=== PATIENT | male | born 1950 | race Caucasian/White ===

== ENCOUNTER 2017-04-12 15:33 | Inpatient (IN) | payer MEDICARE, OTHER ==
--- NOTE | 2017-04-12 16:15 | ED ---
General Adult HPI - General Chief complaint: Shortness of Breath Stated complaint: SOB Time Seen by Provider: 04/12/17 15:41 Source: patient, RN notes reviewed Mode of arrival: EMS Limitations: no limitations - History of Present Illness Initial comments: Patient is a pleasant 67-year-old male presenting to the emergency Department as a transfer from [facility]. Patient states he has been having shortness of breath over the past week. Patient was seen there and had x-rays following computed tomography scan. Computed tomography scan was concerning for mass and effusion. Patient is also noted to be in A. fib with RVR. Patient states no fevers. Patient has had a cough with occasional white sputum. Patient states he does have a history of both COPD and atrial fibrillation. - Related Data Home Medications Medication Instructions Recorded Confirmed Albuterol Inhaler [Ventolin Hfa 1 - 2 puff INHALATION RT-QID PRN 04/12/17 Inhaler] Apixaban [Eliquis] 5 mg PO BID 04/12/17 04/12/17 Metoprolol Tartrate [Lopressor] 50 mg PO BID 04/12/17 04/12/17 Multivitamins, Thera [Multivitamin 1 tab PO DAILY 04/12/17 04/12/17 (formulary)] Omeprazole 20 mg PO HS 04/12/17 04/12/17 Simvastatin 40 mg PO HS 04/12/17 04/12/17 Terazosin HCl 10 mg PO HS 04/12/17 04/12/17 Allergies Allergy/AdvReac Type Severity Reaction Status Date / Time No Known Allergies Allergy Verified 04/12/17 15:50 Review of Systems ROS Statement: Those systems with pertinent positive or pertinent negative responses have been documented in the HPI. ROS Other: All systems not noted in ROS Statement are negative. Constitutional: Denies: fever, chills Eyes: Denies: eye pain ENT: Denies: ear pain Cardiovascular: Denies: chest pain Endocrine: Reports: fatigue Gastrointestinal: Denies: abdominal pain Genitourinary: Denies: dysuria Musculoskeletal: Denies: back pain Skin: Denies: rash Neurological: Denies: weakness Past Medical History Past Medical History: Atrial Fibrillation, Coronary Artery Disease (CAD), Cancer , Chest Pain / Angina, COPD, Hyperlipidemia, Hypertension History of Any Multi-Drug Resistant Organisms: None Reported Past Surgical History: Adenoidectomy, Tonsillectomy Additional Past Surgical History / Comment(s): Vagotomy, Colonoscopy, Gastroscopy, Hemicolectomy Past Psychological History: No Psychological Hx Reported Smoking Status: Former smoker Past Alcohol Use History: Daily Past Drug Use History: None Reported General Exam Limitations: no limitations General appearance: alert, in no apparent distress Head exam: Present: atraumatic Eye exam: Present: normal appearance, PERRL ENT exam: Present: normal oropharynx Neck exam: Present: normal inspection Respiratory exam: Present: decreased breath sounds (more so on the left) Cardiovascular Exam: Present: tachycardia, irregular rhythm GI/Abdominal exam: Present: soft. Absent: tenderness Extremities exam: Present: normal inspection. Absent: pedal edema, calf tenderness Neurological exam: Present: alert Psychiatric exam: Present: normal affect, normal mood Skin exam: Present: normal color Course Vital Signs 04/12/17 04/12/17 15:41 15:46 Temperature 97.7 F Pulse Rate 120 H Respiratory 20 20 Rate Blood Pressure 143/92 O2 Sat by Pulse 95 Oximetry - Reevaluation(s) Reevaluation #1: 04/12/17 16:11 apparently report was accidentally called to the wrong hospital. Case was discussed with Dr. Wills. Chart was reviewed Including ER report and lab and CT results.. Patient was updated. 04/12/17 16:12 case was discussed in detail with Dr. aHnnah, who will admit for hospital call. Consult will be placed for pulmonary and cardiology. 04/12/17 16:18 Patient was started on Rocephin prior to arrival with concern for UTI and possible pneumonia. Patient does meet sepsis criteria diagnosed at 1618 Lactic acid and blood cultures have been ordered. Cardizem drip and heparin drip have been ordered. Medical Decision Making - Radiology Data Radiology results: report reviewed (CT report shows near total opacification left hemithorax. large mass left upper lobe worrisome for neoplasm. Mediastinal lymphadenopathy. No pulmonary embolism.) Critical Care Time Critical Care Time: Yes Total Critical Care Time: 31 Disposition Clinical Impression: Atrial fibrillation with RVR, Lung mass, Pleural effusion Disposition: ADMITTED IP TO THIS HOSP Condition: Serious Referrals: Marc Smith MD [Primary Care Provider] - 1-2 days Decision Time: 16:25
[2017-04-12] MEDS ORDERED: HEPARIN SODIUM,PORCINE 5,000 UNIT/ML 1 ML VIAL IV PRN ×2 (16:16→20:15)
[2017-04-12] MEDS ORDERED: AZITHROMYCIN 500 MG in SODIUM CHLORIDE 0.9% 250 ML IVPB STA (16:17)
[2017-04-12] MEDS ORDERED: PNEUMONIA PROTOCOL UTILIZED 1 EACH MISC PO PRN (16:17)
[2017-04-12] MEDS ORDERED: IPRATROPIUM-ALBUTEROL 3 ML NEB INHALATION PRN (16:17)
[2017-04-12] MEDS ORDERED: HEPARIN SODIUM,PORCINE/D5W PMX 25,000 UNIT in DEXTROSE/WATER 1 500ML.BAG IV SCH (16:30)
[2017-04-12] MEDS: HEPARIN SODIUM,PORCINE 5,000 UNIT/ML 1 ML VIAL IV ONE ×2 (16:34→16:37)
[2017-04-12] MEDS: DILTIAZEM 125 MG in SODIUM CHLORIDE 0.9% 100 ML IV ONE (16:37)
[2017-04-12] MEDS ORDERED: HEPARIN SODIUM,PORCINE 5,000 UNIT/ML 1 ML VIAL IV ONE (20:15)
[2017-04-12] MEDS: IPRATROPIUM-ALBUTEROL 3 ML NEB INHALATION SCH (20:57)
[2017-04-12] MEDS ORDERED: METOPROLOL TARTRATE 50 MG TAB PO SCH (21:00)
[2017-04-12 21:11] LABS: Basophils % (A) 0 %; CH 28.3; CHCM 31.1; Eosinophils % (A) 0 %; HCT 40.3 % (39.0-53.0); HDW 2.35; HGB 12.4 gm/dL (13.0-17.5); Hypochromasia Slight; Luc # (Auto) 0.05; Luc % (Auto) 1; Lymphocytes # (A) 0.6 k/uL (1.0-4.8); Lymphocytes % (A) 7 %; MCHC 30.7 g/dL (31.0-37.0); MCV 91.4 fL (80.0-100.0); Mean Platelet Volume 7.8; Monocytes # (A) 0.4 k/uL (0-1.0); Monocytes % (A) 4 %; Neutrophils # (A) 8.1 k/uL (1.3-7.7); Neutrophils % (A) 88 %; RBC 4.41 m/uL (4.30-5.90); WBC 9.2 k/uL (3.8-10.6); WBC (Perox) 9.26
[2017-04-12] MEDS: DOXAZOSIN 4 MG TAB PO SCH (21:21)
[2017-04-12] MEDS: PANTOPRAZOLE 40 MG TABLET PO SCH (21:21)
[2017-04-12] MEDS: ATORVASTATIN 20 MG TAB PO SCH (21:21)
[2017-04-12 21:27] LABS: INR 1.2 (<1.2); Partial Thromboplastin Time 26.4 sec (22.0-30.0); Prothrombin Time 11.6 sec (9.0-12.0)
[2017-04-12] MEDS: HEPARIN SODIUM,PORCINE/D5W PMX 25,000 UNIT in DEXTROSE/WATER 1 500ML.BAG IV SCH (21:33)
[2017-04-13] MEDS: DILTIAZEM 125 MG in SODIUM CHLORIDE 0.9% 100 ML IV ONE (00:08)
--- NOTE | 2017-04-13 00:08 | P.HPIM ---
History of Present Illness H&P Date: 04/12/17 Chief Complaint: Shortness of breath Patient is a 67-year-old male with a known history of atrial fibrillation on anticoagulant with eliquis, COPD, history of smoking quit 7 years ago, history of colon cancer in 2010 status post two thirds of colon resection came to the hospital with altered mentation and confusion for the past 1 week. Patient has not been feeling well. Patient is also not eating well. Patient was also having worsening difficulty breathing and congestion. Patient initially presented to [facility]. Patient did have chest x-ray and computed tomography scan at that time. Computed tomography scan showed left lung mass and complete her prescription of left lung with effusion. Patient was also found to have its fibrillation with rapid lower rate. Patient was sent to [facility] for further evaluation by pulmonary and cardiology. Patient was started on Cardizem drip. Patient does take metoprolol at home. Patient denied a otherwise fever or chills. Patient does have cough with whitish sputum production. Patient did not have any prior chemotherapy or radiation. Review of Systems Constitutional: Patient denies any fever or chills . Generalized weakness and malaise. No weight loss Abdomen: Patient denied nausea vomiting and diarrhea and abdominal pain. Cardiovascular: Patient denies any chest pain or short of breath no palpitations. Respiratory: patient denied any cough is from production. Patient does have shortness of breath Neurologic: Patient denied any numbness or tingling headache. Musculoskeletal: Patient denies any complaints of joint swelling or deformity. Skin: Negative Psychiatric: Negative Endocrine: No heat or cold intolerance. No recent weight gain. Genitourinary: No dysuria or hematuria. All other 14 point ROS negative except the above Past Medical History Past Medical History: Atrial Fibrillation, Coronary Artery Disease (CAD), Cancer , Chest Pain / Angina, COPD, Hyperlipidemia, Hypertension History of Any Multi-Drug Resistant Organisms: None Reported Past Surgical History: Adenoidectomy, Hernia Repair, Tonsillectomy Additional Past Surgical History / Comment(s): Vagotomy, Colonoscopy, Gastroscopy, Hemicolectomy. HYDROCELE REPAIR Past Anesthesia/Blood Transfusion Reactions: No Reported Reaction Past Psychological History: No Psychological Hx Reported Smoking Status: Former smoker Past Alcohol Use History: Daily Past Drug Use History: None Reported - Past Family History Mother Family Medical History: Dementia Father Additional Family Medical History / Comment(s): KILLED CAR ACCIDENT AT 36 YEARS OLD Medications and Allergies Home Medications Medication Instructions Recorded Confirmed Type Albuterol Inhaler [Ventolin Hfa 1 - 2 puff INHALATION RT-QID PRN 04/12/17 History Inhaler] Apixaban [Eliquis] 5 mg PO BID 04/12/17 04/12/17 History Metoprolol Tartrate [Lopressor] 50 mg PO BID 04/12/17 04/12/17 History Multivitamins, Thera [Multivitamin 1 tab PO DAILY 04/12/17 04/12/17 History (formulary)] Omeprazole 20 mg PO HS 04/12/17 04/12/17 History Simvastatin 40 mg PO HS 04/12/17 04/12/17 History Terazosin HCl 10 mg PO HS 04/12/17 04/12/17 History Allergies Allergy/AdvReac Type Severity Reaction Status Date / Time No Known Allergies Allergy Verified 04/12/17 15:50 Physical Exam Vitals: Vital Signs Temp Pulse Pulse Resp BP BP Pulse Ox 04/12/17 17:15 97.7 F 126 H 28 H 120/74 92 L 04/12/17 16:51 131 H 04/12/17 16:42 114 H 04/12/17 16:39 98.4 F 143 H 18 110/77 96 04/12/17 15:46 20 04/12/17 15:41 97.7 F 120 H 20 143/92 95 Intake and Output 04/12/17 04/12/17 04/12/17 06:59 14:59 22:59 Intake Total 120 Output Total 400 Balance -280 Intake: Oral 120 Output: Urine 400 Other: Voiding Method Urinal Weight 88.5 kg Patient Weight 04/13/17 05:59 Weight 88.5 kg PHYSICAL EXAMINATION: Patient is lying in the bed comfortably, no acute distress, awake alert and oriented.. HEENT: Normocephalic. Neck is supple. Pupils reactive. Nostrils clear. Oral cavity is moist. Ears reveal no drainage. Neck reveals no JVD, carotid bruits, or thyromegaly. CHEST EXAMINATION: Trachea is central. Symmetrical expansion. Decreased left lung sounds. No wheezing. No crackles. CARDIAC: Normal S1, S2 with no gallops. No murmurs irregularly irregular rhythm ABDOMEN: Soft. Bowel sounds normal. No organomegaly. No abdominal bruits. Extremities: reveal no edema. No clubbing or cyanosis Neurologically awake, alert, oriented x3 with well-coordinated movements. No focal deficits noted Skin: No rash or skin lesions. Psychiatric: Cooperative. Nonsuicidal Musculoskeletal: No joint swelling or deformity. Normal range of motion. Results CBC & Chem 7: 04/12/17 20:38 Labs: Abnormal Lab Results - Last 24 Hours (Table) 04/12/17 04/12/17 Range/Units 20:38 20:38 Hgb 12.4 L (13.0-17.5) gm/dL MCHC 30.7 L (31.0-37.0) g/dL Neutrophils # 8.1 H (1.3-7.7) k/uL Lymphocytes # 0.6 L (1.0-4.8) k/uL INR 1.2 H (<1.2) Thrombosis Risk Factor Assmnt - Choose All That Apply Each Factor Represents 1 point: Abnormal pulmonary function (COPD), Obesity ( BMI >25), Serious lung disease incl. pneumonia (< 1month) Each Risk Factor Represents 2 Points: Age 61-74 years Other congenital or acquired thrombophilia - If yes, enter type in comment: No Thrombosis Risk Factor Assessment Total Risk Factor Score: 5 Thrombosis Risk Factor Assessment Level: High Risk Assessment and Plan Assessment: #1 atrial fibrillation with a rapid irregular rate. On and a Coblation at home #2 shortness of breath secondary to left-sided lung mass with pleural effusion. As per CT chest #3 history of colon cancer status post two thirds of colon resection in 2009 #4 history of cigarette smoking quit in 2009 #5 COPD not in exacerbation #6 hypertension #7 possible pneumonia Plan: Patient will be continued on Cardizem drip and patient was started back on metoprolol. Patient was started on heparin IV for possible surgical intervention by pulmonary. We will continue the home medications. Current with antibiotics and breathing treatments. Prognosis is guarded. Further recommendations based on the clinical course. Discussed with family at bedside. Time with Patient: Greater than 30
[2017-04-13 03:55] LABS: Basophils % (A) 0 %; CH 28.3; Eosinophils % (A) 0 %; HCT 38.8 % (39.0-53.0); HDW 2.48; HGB 12.1 gm/dL (13.0-17.5); Hypochromasia Slight; Luc # (Auto) 0.19; Luc % (Auto) 2; Lymphocytes # (A) 0.9 k/uL (1.0-4.8); Lymphocytes % (A) 9 %; MCH 28.6 pg (25.0-35.0); MCHC 31.2 g/dL (31.0-37.0); MCV 91.8 fL (80.0-100.0); Mean Platelet Volume 7.4; Monocytes # (A) 0.7 k/uL (0-1.0); Monocytes % (A) 7 %; Neutrophils # (A) 8.6 k/uL (1.3-7.7); Neutrophils % (A) 83 %; RBC 4.23 m/uL (4.30-5.90); RDW 12.5 % (11.5-15.5); WBC 10.4 k/uL (3.8-10.6)
--- NOTE | 2017-04-13 06:45 | XR ---
EXAMINATION TYPE: XR chest 2V DATE OF EXAM: 04/13/2017 HISTORY: pneumonia. REFERENCE: NONE. FINDINGS: There is a complete white out of the left hemithorax. An accompanying gas CT scan of the ch est demonstrates a diseases due to a combination of pleural fluid and atelectasis. The right lung is overinflated but clear. Mediastinal structures are shifted towards the left. IMPRESSION: 1. NEAR COMPLETE OPACIFICATION OF THE LEFT HEMITHORAX. 2. COPD.
[2017-04-13] MEDS: IPRATROPIUM-ALBUTEROL 3 ML NEB INHALATION SCH ×4 (08:49→20:09)
--- NOTE | 2017-04-13 09:02 | P.CRDCN ---
History of Present Illness Consult date: 04/13/17 Chief complaint: Shortness of breath/chest discomfort History of present illness: This is a pleasant 67-year-old gentleman who is known to have chronic A. fib fibrillation, chronic obstructive pulmonary disease, hypertension, dyslipidemia , and history of colon cancer in the past where he underwent a colon resection few years ago, was transferred from [facility] to [facility] for further evaluation of change in mental status. When I examined the patient this morning, he seems to be awake, alert, and oriented 3. According to the patient, he has not been feeding well for the last few weeks but for the last week he has been experiencing progressive exertional dyspnea associated with chest discomfort seems to be very pleuritic in nature. He stated that the discomfort is only once he coughed. Denies having any fever or chills. He has been experiencing cough productive of sputum. No wheezing. The patient underwent a chest x-ray which showed complete opacification of the left lung. There is concern regarding lung cancer. Hemodynamically, the patient is in atrial fibrillation with slightly uncontrolled heart rate and currently he is on Cardizem IV at 5 mg per hour. He is on metoprolol tartrate as well at 50 mg by mouth twice a day. Beside that he was at home on oral anticoagulation which has been held at this point and currently he is on heparin IV. He is known to have chronic atrial fibrillation on chronic anticoagulation at home and he does follows with a entry level sales representative at [facility]. He is not aware of any prior history of coronary artery disease or any congestive heart failure beside the atrial fibrillation. Past Medical History Past Medical History: Atrial Fibrillation, Coronary Artery Disease (CAD), Cancer , Chest Pain / Angina, COPD, Hyperlipidemia, Hypertension History of Any Multi-Drug Resistant Organisms: None Reported Past Surgical History: Adenoidectomy, Hernia Repair, Tonsillectomy Additional Past Surgical History / Comment(s): Vagotomy, Colonoscopy, Gastroscopy, Hemicolectomy. HYDROCELE REPAIR Past Anesthesia/Blood Transfusion Reactions: No Reported Reaction Past Psychological History: No Psychological Hx Reported Smoking Status: Former smoker Past Alcohol Use History: Daily Past Drug Use History: None Reported - Past Family History Mother Family Medical History: Dementia Father Additional Family Medical History / Comment(s): KILLED CAR ACCIDENT AT 36 YEARS OLD Medications and Allergies Home Medications Medication Instructions Recorded Confirmed Type Albuterol Inhaler [Ventolin Hfa 1 - 2 puff INHALATION RT-QID PRN 04/12/17 History Inhaler] Apixaban [Eliquis] 5 mg PO BID 04/12/17 04/12/17 History Metoprolol Tartrate [Lopressor] 50 mg PO BID 04/12/17 04/12/17 History Multivitamins, Thera [Multivitamin 1 tab PO DAILY 04/12/17 04/12/17 History (formulary)] Omeprazole 20 mg PO HS 04/12/17 04/12/17 History Simvastatin 40 mg PO HS 04/12/17 04/12/17 History Terazosin HCl 10 mg PO HS 04/12/17 04/12/17 History Allergies Allergy/AdvReac Type Severity Reaction Status Date / Time No Known Allergies Allergy Verified 04/12/17 15:50 Physical Exam Vitals: Vital Signs Temp Pulse Pulse Pulse Resp BP BP 04/13/17 08:52 100 04/13/17 08:00 96.8 F L 95 28 H 110/62 04/13/17 04:00 97.7 F 86 18 101/67 04/13/17 00:00 97.9 F 90 20 98/66 04/12/17 20:00 98.5 F 116 H 20 115/78 04/12/17 17:15 97.7 F 126 H 28 H 120/74 04/12/17 16:51 131 H 04/12/17 16:42 114 H 04/12/17 16:39 98.4 F 143 H 18 110/77 04/12/17 15:46 20 04/12/17 15:41 97.7 F 120 H 20 143/92 Pulse Ox 04/13/17 08:52 94 L 04/13/17 08:00 94 L 04/13/17 04:00 94 L 04/13/17 00:00 94 L 04/12/17 20:00 93 L 04/12/17 17:15 92 L 04/12/17 16:51 04/12/17 16:42 04/12/17 16:39 96 04/12/17 15:46 04/12/17 15:41 95 Intake and Output 04/12/17 04/13/17 04/13/17 23:59 06:59 14:59 Intake Total 0 Output Total Balance 0 Intake: Intake, IV Titration Amount Diltiazem 125 mg In Sodium Chloride 0.9% 100 ml @ 10 MG/HR 10 mls/hr IV .[id number] ONE Rx#: [id number] Heparin Sodium,Porcine/ D5w Pmx 25,000 unit In Dextrose/Water 1 500ml. bag @ 20 mls/hr IV .Q24H ELYSE Rx#:[id number] Oral 0 Output: Urine Other: Voiding Method # Voids Weight - Constitutional General appearance: no acute distress - Respiratory Respiratory: right: CTA, left: diminished - Cardiovascular Rhythm: irregularly irregular Heart sounds: normal: S1, S2 Results 04/13/17 03:14 Coagulation 04/12/17 04/13/17 Range/Units 20:38 03:14 PT 11.6 (9.0-12.0) sec APTT 26.4 97.3 H* (22.0-30.0) sec CBC 04/12/17 04/13/17 Range/Units 20:38 03:14 WBC 9.2 10.4 (3.8-10.6) k/uL RBC 4.41 4.23 L (4.30-5.90) m/uL Hgb 12.4 L 12.1 L (13.0-17.5) gm/dL Hct 40.3 38.8 L (39.0-53.0) % Plt Count 275 238 (150-450) k/uL Current Medications Generic Name Dose Route Start Last Admin Trade Name Freq PRN Reason Stop Dose Admin Albuterol/Ipratropium 3 ml 04/12/17 20:00 04/13/17 08:49 Duoneb 0.5 Mg-3 Mg/3 Ml Soln INHALATION 3 ml RT-QID ELYSE Administration Albuterol/Ipratropium 3 ml 04/12/17 16:17 04/12/17 16:42 Duoneb 0.5 Mg-3 Mg/3 Ml Soln INHALATION 3 ml RT-Q4H PRN Administration shortness of breath Atorvastatin Calcium 20 mg 04/12/17 21:00 04/12/17 21:21 Lipitor PO 20 mg HS ELYSE Administration Azithromycin 500 mg 04/13/17 09:00 Zithromax PO DAILY [facility] Ceftriaxone Sodium 1,000 mg 11/05/17 16:17 Rocephin IVP 04/16/17 16:18 Q24HR ELYSE Doxazosin Mesylate 8 mg 04/12/17 21:00 04/12/17 21:21 Cardura PO 8 mg HS ELYSE Administration Heparin Sodium (Porcine) 0 unit 04/12/17 20:15 Heparin IV PER PROTOCOL PRN Low PTT Protocol Heparin Sodium/Dextrose 25,000 500 mls @ 20 mls/hr 04/12/17 20:15 04/13/17 06 :03 unit/ IV Solution IV 8.3 units/kg/hr .Q24H ELYSE 15.43 mls/hr Protocol Titration Metoprolol Tartrate 50 mg 04/13/17 09:00 Lopressor PO TID ELYSE Miscellaneous Information 1 each 04/12/17 16:17 Pneumonia Protocol Utilized PO ONCE PRN Per Protocol Multivitamins 1 each 04/13/17 12:00 Theragran PO DAILY@1200 ELYSE Pantoprazole Sodium 40 mg 04/12/17 21:00 04/12/17 21:21 Protonix PO 40 mg HS ELYSE Administration Intake and Output 04/12/17 04/13/17 04/13/17 23:59 06:59 14:59 Intake Total 0 Output Total Balance 0 Intake: Intake, IV Titration Amount Diltiazem 125 mg In Sodium Chloride 0.9% 100 ml @ 10 MG/HR 10 mls/hr IV .[id number] ONE Rx#: [id number] Heparin Sodium,Porcine/ D5w Pmx 25,000 unit In Dextrose/Water 1 500ml. bag @ 20 mls/hr IV .Q24H ELYSE Rx#:[id number] Oral 0 Output: Urine Other: Voiding Method # Voids Weight 04/13/17 03:14 Assessment and Plan Assessment: This is a pleasant 67-year-old gentleman with a known chronic nature fibrillation on anticoagulation, hypertension, dyslipidemia, COPD, was transferred to the current [facility] with progressive exertional dyspnea and pleuritic chest discomfort. The chest x-ray showed near complete opacification of the left lung. There is a concern regarding a lung mass/lung CAD. Hemodynamically the patient is in atrial fibrillation with slightly uncontrolled heart rates. I am going to DC the Cardizem IV and increase the metoprolol by mouth 250 mg 3 times a day. I will continue holding oral anticoagulation and continue heparin IV because the patient might need to have pleurocentesis. I will obtain an echocardiogram was Doppler. I will obtain serial cardiac enzymes as well. And we'll continue following up with him. Thank you for allowing us participate in his care
[2017-04-13] MEDS: METOPROLOL TARTRATE 50 MG TAB PO SCH ×3 (09:11→21:54)
[2017-04-13] MEDS: AZITHROMYCIN 500 MG TAB PO SCH (09:11)
[2017-04-13 11:05] LABS: Creatine Kinase 42 U/L (55-170)
[2017-04-13 11:17] LABS: Creatine Kinase MB 0.9 ng/mL (0.0-2.4); Troponin I <0.012 ng/mL (0.000-0.034)
[2017-04-13] MEDS: MULTIVITAMINS, THERA 1 EACH TAB PO SCH (11:45)
--- NOTE | 2017-04-13 13:27 | P.CNPUL ---
History of Present Illness Consult date: 04/13/17 Reason for consult: lung mass History of present illness: this is a 67-year-old male patient, we'll came in to the hospital because of progressive worsening shortness of breath over the past few weeks. chest x-ray was done and showed volume loss on the left along with shift of the mediastinum to the left and complete opacification of the left lung. CAT scan of the chest that was done in my letter showed a large left upper lobe mass, a small left lower lobe pleural effusion, mediastinal lymphadenopathy involving the right paratracheal and subcarinal area in addition to possibility of a left hilar mass causing invasion of the distal left mainstem bronchus causing mass effect. there is a cutoff sign where various bronchi of the upper and lower lobe cannot be adequately visualized and there may be some endobronchial involvement with possibly a malignant process. the patient is quite stable at this point. He is on 2 L of oxygen nasal cannula. Denies having any significant chest pain. No hemoptysis no pleurisy. no weight loss. Is an ex-smoker. He's been involved and colon cancer that was resected back in 2009 and the patient did not require any systemic chemotherapy knowing that his disease was localized back then. He has chronic atrial fibrillation. He has been maintained on oral anticoagulants on outpatient basis which is currently on hold and the patient is on IV Lasix. no fever. No chills no sweats. he is a bit hoarse possibly related to vocal cord paralysis. Review of Systems Constitutional: Reports fatigue Eyes: denies blurred vision, denies bulging eye, denies decreased vision Ears: deny: decreased hearing, ear discharge, earache Ears, nose, mouth and throat: Reports hoarseness Cardiovascular: Reports decreased exercise tolerance, Reports irregular heart beat, Reports shortness of breath Respiratory: Reports cough, Reports dyspnea Gastrointestinal: Denies abdominal pain, Denies diarrhea, Denies nausea, Denies vomiting Genitourinary: Reports as per HPI Musculoskeletal: Denies myalgias Musculoskeletal: absent: ankle pain, ankle stiffness, ankle swelling Integumentary: Denies pruritus, Denies rash Neurological: Denies numbness, Denies weakness Psychiatric: Denies anxiety, Denies depression Endocrine: Denies fatigue, Denies weight change Past Medical History Past Medical History: Atrial Fibrillation, Coronary Artery Disease (CAD), Cancer ( colon cancer with previous colectomy in 2009), Chest Pain / Angina, COPD, Hyperlipidemia, Hypertension History of Any Multi-Drug Resistant Organisms: None Reported Past Surgical History: Adenoidectomy, Hernia Repair, Tonsillectomy Additional Past Surgical History / Comment(s): Vagotomy and pyloroplasty for peptic ulcer disease, Colonoscopy, Gastroscopy, Hemicolectomy for colon cancer. HYDROCELE REPAIR Past Anesthesia/Blood Transfusion Reactions: No Reported Reaction Past Psychological History: No Psychological Hx Reported Smoking Status: Former smoker Past Alcohol Use History: Daily Past Drug Use History: None Reported - Past Family History Mother Family Medical History: Dementia Father Additional Family Medical History / Comment(s): KILLED CAR ACCIDENT AT 36 YEARS OLD Medications and Allergies Home Medications Medication Instructions Recorded Confirmed Type Albuterol Inhaler [Ventolin Hfa 1 - 2 puff INHALATION RT-QID PRN 04/12/17 History Inhaler] Apixaban [Eliquis] 5 mg PO BID 04/12/17 04/12/17 History Metoprolol Tartrate [Lopressor] 50 mg PO BID 04/12/17 04/12/17 History Multivitamins, Thera [Multivitamin 1 tab PO DAILY 04/12/17 04/12/17 History (formulary)] Omeprazole 20 mg PO HS 04/12/17 04/12/17 History Simvastatin 40 mg PO HS 04/12/17 04/12/17 History Terazosin HCl 10 mg PO HS 04/12/17 04/12/17 History Allergies Allergy/AdvReac Type Severity Reaction Status Date / Time No Known Allergies Allergy Verified 04/12/17 15:50 Physical Exam Vitals: Vital Signs Temp Pulse Pulse Pulse Resp BP BP 04/13/17 11:43 97.6 F 83 20 93/62 04/13/17 09:06 106 H 04/13/17 08:52 100 04/13/17 08:00 96.8 F L 95 20 110/62 04/13/17 04:00 97.7 F 86 18 101/67 04/13/17 00:00 97.9 F 90 20 98/66 04/12/17 20:00 98.5 F 116 H 20 115/78 04/12/17 17:15 97.7 F 126 H 28 H 120/74 04/12/17 16:51 131 H 04/12/17 16:42 114 H 04/12/17 16:39 98.4 F 143 H 18 110/77 04/12/17 15:46 20 04/12/17 15:41 97.7 F 120 H 20 143/92 Pulse Ox 04/13/17 11:43 94 L 04/13/17 09:06 04/13/17 08:52 94 L 04/13/17 08:00 94 L 04/13/17 04:00 94 L 04/13/17 00:00 94 L 04/12/17 20:00 93 L 04/12/17 17:15 92 L 04/12/17 16:51 04/12/17 16:42 04/12/17 16:39 96 04/12/17 15:46 04/12/17 15:41 95 Intake and Output 04/12/17 04/13/17 04/13/17 23:59 06:59 14:59 Intake Total 245 Output Total Balance 245 Intake: IV 245 Azithromycin 500 mg In 125 Sodium Chloride 0.9% 250 ml @ 125 mls/hr IVPB ONCE [facility] Rx#:[id number] Heparin Sodium,Porcine/ 120 D5w Pmx 25,000 unit In Dextrose/Water 1 500ml. bag @ 20 mls/hr IV .Q24H [facility] Rx#:[id number] Intake, IV Titration Amount Diltiazem 125 mg In Sodium Chloride 0.9% 100 ml @ 10 MG/HR 10 mls/hr IV .[id number] [facility] Rx#: [id number] Heparin Sodium,Porcine/ D5w Pmx 25,000 unit In Dextrose/Water 1 500ml. bag @ 20 mls/hr IV .Q24H [facility] Rx#:[id number] Oral 0 Output: Urine Other: Voiding Method Urinal # Voids Weight The patient appeared well nourished and normally developed. Vital signs as documented. Head exam is unremarkable. No scleral icterus or corneal arcus noted. Neck is without jugular venous distension, thyromegaly, or carotid bruits. Carotid upstrokes are brisk bilaterally. Lungs are clear to auscultation and percussionside and there is absent breath sounds on the left. Cardiac exam reveals the PMI to be normally sized and situated. Rhythm is is irregular secondary to atrial fibrillation and the patient has an irregular S1- S2l. No murmurs, rubs or gallops. Abdominal exam reveals normal bowel sounds, no masses, no organomegaly and no aortic enlargement. Extremities are nonedematous and both femoral and pedal pulses are normal.Examination of the skin revealed no evidence of significant rashes, suspicious appearing nevi or other concerning lesions.neurologically the patient is awake and alert and there is no focal neurological deficits. Results - Laboratory Findings CBC and BMP: 04/13/17 03:14 PT/INR, D-dimer PT 11.6 sec (9.0-12.0) 04/12/17 20:38 INR 1.2 (<1.2) H 04/12/17 20:38 Abnormal lab findings: Abnormal Labs 04/12/17 04/12/17 04/13/17 20:38 20:38 03:14 RBC 4.23 L Hgb 12.4 L 12.1 L Hct 38.8 L MCHC 30.7 L Neutrophils # 8.1 H 8.6 H Lymphocytes # 0.6 L 0.9 L INR 1.2 H APTT Total Creatine Kinase 04/13/17 04/13/17 04/13/17 03:14 10:33 10:33 RBC Hgb Hct MCHC Neutrophils # Lymphocytes # INR APTT 97.3 H* 46.7 H Total Creatine Kinase 42 L - Diagnostic Findings Chest x-ray: image reviewed CT scan - chest: image reviewed Assessment and Plan Plan: assessment 1 large left upper lobe mass in addition to mass effect on the distal left mainstem bronchus and possible endobronchial involvement of the distal left mainstem and left upper lobe and left lower lobe bronchi. In addition, there is a suspicious left hilar mass, mediastinal lymphadenopathy involving the right paratracheal and subcarinal area with a lymphadenopathy being is larger still 2.5 cm in size. These findings are very much worrisome of lung cancer causing mass effect on the left mainstem. There is atelectatic changes and left lung base along with small pleural effusion and a large left upper lobe mass. 2 shortness of breath secondary to above 3 colon cancer previous colectomy back in 2009 4 coronary artery disease 5 chronic atrial fibrillation 6 hyperlipidemia 7 hypertension 8 history of hiatal hernia 9 history of ppyloroplasty and vagotomy for peptic ulcer disease. plan I reviewed the CAT scan findings. I think the pleural effusion is small. I think the procedure that'll give us the highest yield in establishing a diagnosis is a bronchoscopy as I anticipate some endobronchial abnormalities in the left side especially in the distal left mainstem bronchus and probably left upper lobe bronchus. The patient may need a bronchoscopy to establish tissue diagnosis. High suspicion for lung cancer. The pleural effusion is small. We' ll make consider a diagnostic tap at a later stage after bronchoscopy does not give us any yield in terms of establishing a diagnosis. Keep the oral anticoagulation on hold and keep the patient IV heparin to be stopped prior to any procedures. Tentative plan is to do a bronchoscopy tomorrow. We'll continue to follow.
[2017-04-13] MEDS: cefTRIAXone IN SWFI 1,000 MG/10 ML SYRINGE IVP SCH (15:48)
[2017-04-13 16:39] LABS: Creatine Kinase 44 U/L (55-170)
[2017-04-13 16:52] LABS: Troponin I <0.012 ng/mL (0.000-0.034)
[2017-04-13 21:56] LABS: Glucose,Whole Blood 109 mg/dL (75-99)
[2017-04-13] MEDS: DOXAZOSIN 4 MG TAB PO SCH (22:15)
[2017-04-13] MEDS: PANTOPRAZOLE 40 MG TABLET PO SCH (22:16)
[2017-04-13] MEDS: ATORVASTATIN 20 MG TAB PO SCH (22:16)
[2017-04-13 23:18] LABS: Creatine Kinase 44 U/L (55-170)
[2017-04-13] MEDS: HEPARIN SODIUM,PORCINE/D5W PMX 25,000 UNIT in DEXTROSE/WATER 1 500ML.BAG IV SCH (23:28)
[2017-04-13 23:32] LABS: Creatine Kinase MB 0.9 ng/mL (0.0-2.4); Troponin I <0.012 ng/mL (0.000-0.034)
--- NOTE | 2017-04-13 23:58 | P.PN ---
Subjective Progress Note Date: 04/13/17 Principal diagnosis: Shortness of breath left lung mass Patient is a 67-year-old male with a known history of atrial fibrillation on anticoagulant with eliquis, COPD, history of smoking quit 7 years ago, history of colon cancer in 2010 status post two thirds of colon resection came to the hospital with altered mentation and confusion for the past 1 week. Patient has not been feeling well. Patient is also not eating well. Patient was also having worsening difficulty breathing and congestion. Patient initially presented to [facility]. Patient did have chest x-ray and computed tomography scan at that time. Computed tomography scan showed left lung mass and complete her prescription of left lung with effusion. Patient was also found to have its fibrillation with rapid lower rate. Patient was sent to [facility] for further evaluation by pulmonary and cardiology. Patient was started on Cardizem drip. Patient does take metoprolol at home. Patient denied a otherwise fever or chills. Patient does have cough with whitish sputum production. Patient did not have any prior chemotherapy or radiation. 04/13/2017 Patient denied any new complaints of chest pain or worsening short of breath. Heart rate is still elevated. No fever no chills. Beta cody dose has been changed to 3 times daily. Pulmonary is planning for bronchoscopy tomorrow. Continue with heparin drip All other review of systems negative except the above Current medications reviewed Objective - Vital Signs Vital signs: Vital Signs Temp 98.5 F 04/13/17 20:00 Pulse 94 04/13/17 20:00 Resp 18 04/13/17 20:00 BP 129/68 04/13/17 20:00 Pulse Ox 95 04/13/17 20:00 Intake & Output 04/13/17 04/13/17 04/14/17 06:59 18:59 06:59 Intake Total 357 Output Total 100 Balance 257 Weight Intake: IV 357 Azithromycin 500 mg In 125 Sodium Chloride 0.9% 250 ml @ 125 mls/hr IVPB ONCE STA Rx#:[id number] Heparin Sodium,Porcine/ 232 D5w Pmx 25,000 unit In Dextrose/Water 1 500ml. bag @ 20 mls/hr IV .Q24H [facility] Rx#:[id number] Intake, IV Titration Amount Diltiazem 125 mg In Sodium Chloride 0.9% 100 ml @ 10 MG/HR 10 mls/hr IV .[id number] [facility] Rx#: [id number] Heparin Sodium,Porcine/ D5w Pmx 25,000 unit In Dextrose/Water 1 500ml. bag @ 20 mls/hr IV .Q24H [facility] Rx#:[id number] Oral 0 Output: Urine 100 Other: Voiding Method Urinal # Voids - Exam PHYSICAL EXAMINATION: Patient is lying in the bed comfortably, no acute distress, awake alert and oriented.. HEENT: Normocephalic. Neck is supple. Pupils reactive. Nostrils clear. Oral cavity is moist. Ears reveal no drainage. Neck reveals no JVD, carotid bruits, or thyromegaly. CHEST EXAMINATION: Trachea is central. Symmetrical expansion. Diminished breath sounds on the left side. CARDIAC: Normal S1, S2 with no gallops. No murmurs ABDOMEN: Soft. Bowel sounds normal. No organomegaly. No abdominal bruits. Extremities: reveal no edema. No clubbing or cyanosis Neurologically awake, alert, oriented x3 with well-coordinated movements. No focal deficits noted Skin: No rash or skin lesions. Psychiatric: Cooperative. Nonsuicidal Musculoskeletal: No joint swelling or deformity. Normal range of motion. - Labs CBC & Chem 7: 04/13/17 03:14 Labs: Abnormal Lab Results - Last 24 Hours (Table) 04/13/17 04/13/17 04/13/17 Range/Units 03:14 03:14 10:33 RBC 4.23 L (4.30-5.90) m/uL Hgb 12.1 L (13.0-17.5) gm/dL Hct 38.8 L (39.0-53.0) % Neutrophils # 8.6 H (1.3-7.7) k/uL Lymphocytes # 0.9 L (1.0-4.8) k/uL APTT 97.3 H* 46.7 H (22.0-30.0) sec POC Glucose (mg/dL) (75-99) mg/dL Total Creatine Kinase (55-170) U/L 04/13/17 04/13/17 04/13/17 Range/Units 10:33 16:05 21:51 RBC (4.30-5.90) m/uL Hgb (13.0-17.5) gm/dL Hct (39.0-53.0) % Neutrophils # (1.3-7.7) k/uL Lymphocytes # (1.0-4.8) k/uL APTT (22.0-30.0) sec POC Glucose (mg/dL) 109 H (75-99) mg/dL Total Creatine Kinase 42 L 44 L (55-170) U/L Microbiology - Last 24 Hours (Table) 04/12/17 18:15 Urine Culture - Final Urine,Voided 04/12/17 16:31 Blood Culture - Preliminary Blood No Growth after 24 hours Assessment and Plan Assessment: #1 atrial fibrillation with a rapid irregular rate. Improved. On anticoagulation at home #2 shortness of breath secondary to left-sided lung mass with pleural effusion. As per CT chest #3 history of colon cancer status post two thirds of colon resection in 2009 #4 history of cigarette smoking quit in 2009 #5 COPD not in exacerbation #6 hypertension #7 possible pneumonia #8 history of ppyloroplasty and vagotomy for peptic ulcer disease. #9 chronic atrial fibrillation Plan: Patient will be continued on metoprolol. Dose increase. DC'd Cardizem drip. Patient was started on heparin IV for possible surgical intervention by pulmonary. Possible bronchoscopy tomorrow. We will continue the home medications. Current with antibiotics and breathing treatments. Prognosis is guarded. Further recommendations based on the clinical course. Discussed with family at bedside. Time with Patient: Greater than 30
[2017-04-14 06:13] LABS: Basophils % (A) 0 %; CH 27.9; CHCM 30.7; Eosinophils # (A) 0.1 k/uL (0-0.7); Eosinophils % (A) 1 %; HCT 39.7 % (39.0-53.0); HDW 2.55; Hypochromasia Slight; Luc # (Auto) 0.12; Luc % (Auto) 2; Lymphocytes # (A) 1.6 k/uL (1.0-4.8); Lymphocytes % (A) 21 %; MCH 27.7 pg (25.0-35.0); MCHC 30.4 g/dL (31.0-37.0); MCV 91.1 fL (80.0-100.0); Mean Platelet Volume 6.9; Monocytes # (A) 0.6 k/uL (0-1.0); Monocytes % (A) 8 %; Neutrophils # (A) 5.2 k/uL (1.3-7.7); Neutrophils % (A) 68 %; RBC 4.35 m/uL (4.30-5.90); RDW 12.5 % (11.5-15.5); WBC 7.7 k/uL (3.8-10.6); WBC (Perox) 7.71
[2017-04-14] MEDS: cefTRIAXone IN SWFI 1,000 MG/10 ML SYRINGE IVP SCH (07:38)
[2017-04-14] MEDS: METOPROLOL TARTRATE 50 MG TAB PO SCH ×3 (07:38→21:12)
[2017-04-14] MEDS: MULTIVITAMINS, THERA 1 EACH TAB PO SCH (07:38)
[2017-04-14] MEDS: AZITHROMYCIN 500 MG TAB PO SCH (07:38)
[2017-04-14] MEDS: IPRATROPIUM-ALBUTEROL 3 ML NEB INHALATION SCH ×5 (08:09→20:22)
[2017-04-14 09:25] VITALS: RESP 16
[2017-04-14] MEDS ORDERED: IV FLUID CONTINUATION 800 ML IV ONE (12:02)
[2017-04-14] MEDS ORDERED: PROPOFOL 10 MG/ML 20 ML VIAL IV ONE (12:02)
--- NOTE | 2017-04-14 13:11 | P.PN ---
Subjective Progress Note Date: 04/14/17 Principal diagnosis: Shortness of breath and chest discomfort This is a 67-year-old gentleman with history of chronic persistent atrial fibrillation, COPD, hypertension, hyperlipidemia, history of colon cancer for which he underwent a colon resection a few years ago. He was transferred from her [facility] hospital because of mental status changes. Patient was seen in consultation by Dr. Nguyễn yesterday. Patient has been experiencing symptoms of exertional dyspnea as well as pleuritic type chest discomfort. He underwent a chest x-ray which revealed complete opacification of the left lung there is concern regarding lung cancer. Patient continues to be in atrial fibrillation heart rate today is in the 90s to low 100s, blood pressure 98/60. According to pulmonary's documentation, CAT scan that was performed revealed a large left upper lobe mass, small left lower lobe pleural effusion, mediastinal lymphadenopathy involving the right paratracheal and subcarinal area in addition to the possibility of a left hilar mass causing invasion at the distal left main stem bronchus causing a mass effect. Likely a malignant process. He is scheduled to undergo bronchoscopy today. Anticoagulation is currently been placed on hold. White blood cell count 12.0, platelet count 319. Objective - Vital Signs Vital signs: Vital Signs Temp 97.7 F 04/14/17 11:47 Pulse 93 04/14/17 12:00 Resp 16 04/14/17 12:00 BP 98/60 04/14/17 11:47 Pulse Ox 96 04/14/17 11:47 Intake & Output 04/13/17 04/14/17 04/14/17 18:59 06:59 18:59 Intake Total 357 268.739 300 Output Total 100 550 Balance 257 -281.261 300 Weight 87.6 kg Intake: IV 357 300 Azithromycin 500 mg In 125 Sodium Chloride 0.9% 250 ml @ 125 mls/hr IVPB ONCE STA Rx#:[id number] Heparin Sodium,Porcine/ 232 D5w Pmx 25,000 unit In Dextrose/Water 1 500ml. bag @ 20 mls/hr IV .Q24H [facility] Rx#:[id number] Intake, IV Titration 268.739 Amount Heparin Sodium,Porcine/ 268.739 D5w Pmx 25,000 unit In Dextrose/Water 1 500ml. bag @ 20 mls/hr IV .Q24H [facility] Rx#:[id number] Oral 0 Output: Urine 100 550 Other: Voiding Method Urinal Urinal # Voids 1 - Exam PHYSICAL EXAMINATION: HEENT: Head is atraumatic, normocephalic. Pupils equal, round. Neck is supple. There is no elevated jugular venous pressure. HEART EXAMINATION: Heart S1 and S2 irregularly irregular CHEST EXAMINATION:lungs reveal absent breath sounds on the left. ABDOMEN: Soft, nontender. Bowel sounds are heard. No organomegaly noted. EXTREMITIES: 2+ peripheral pulses with no evidence of peripheral edema and no calf tenderness noted. NEUROLOGIC patient is awake, alert and oriented -3. . - Labs CBC & Chem 7: 04/14/17 05:09 Labs: Abnormal Lab Results - Last 24 Hours (Table) 04/13/17 04/13/17 04/13/17 Range/Units 16:05 21:51 22:22 Hgb (13.0-17.5) gm/dL MCHC (31.0-37.0) g/dL APTT (22.0-30.0) sec POC Glucose (mg/dL) 109 H (75-99) mg/dL Total Creatine Kinase 44 L 44 L (55-170) U/L 04/14/17 04/14/17 Range/Units 05:09 05:09 Hgb 12.0 L (13.0-17.5) gm/dL MCHC 30.4 L (31.0-37.0) g/dL APTT 33.2 H (22.0-30.0) sec POC Glucose (mg/dL) (75-99) mg/dL Total Creatine Kinase (55-170) U/L Microbiology - Last 24 Hours (Table) 04/12/17 18:15 Urine Culture - Final Urine,Voided 04/12/17 16:31 Blood Culture - Preliminary Blood No Growth after 24 hours Assessment and Plan Plan: Assessment and plan #1 chest pain, atypical in nature, pleuritic. Troponins negative 3. #2 large left upper lobe mass in addition to a mass in the distal left mainstem bronchus. Patient is scheduled for bronchoscopy today. #3 history of colon cancer with prior colectomy #4 chronic persistent atrial fibrillation #5 hyperlipidemia #6 hypertension PLAN We will review the echocardiogram with Doppler study. Anticoagulation continues to be on hold and patient is scheduled to undergo bronchoscopy today. Further recommendations will be based on these findings and the patient's clinical course. DNP note has been reviewed, I agree with a documented findings and plan of care. Patient was seen and examined.
--- NOTE | 2017-04-14 13:18 | PCN ---
PROCEDURE NOTE OPERATIVE REPORT: Bronchoscopy, washings, brushings, and endobronchial biopsies of the left mainstem endobronchial tumor. PREOPERATIVE DIAGNOSIS: Left lung mass with complete obstruction of the left lung and lung collapse. 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 PROCEDURE: The patient was placed and was prepared according to the bronchoscopy protocol. The patient was placed on oxygen via nasal cannula. We monitored his O2 saturation continuously. Blood pressure was intermittently monitored. Cardiac rhythm was continuously monitored. After IV conscious sedation, the right naris was anesthetized locally with topical lidocaine. Then, the bronchoscope was advanced through the right naris into the area of the vocal cords. These were noted to be patent. Then, lidocaine was applied over the vocal cords, and the bronchoscope was advanced further down to the trachea. The trachea was noted to be narrowed and extrinsically compressed from both sides, more so from the right side, and to some extent was also compressed and deviating medially from the left side. Again, pictures of the narrowing of the trachea were taken. Then as we entered the right mainstem bronchus, examination of the right side was done and it was basically unremarkable. No evidence of any endobronchial tumor or findings noted on the right side. But as we entered the left mainstem bronchus, there was clearly a large tumor completely occluding and obstructing the distal left mainstem bronchus. It was more than 2 cm from the alfonso and occluding the left upper lobe lingula and left lower lobe. Multiple washings, brushings, and multiple endobronchial biopsies were taken from the tumor, which seemed to be completely occluding the left mainstem bronchus. The procedure was well tolerated, no evidence of any immediate complications. BLOOD LOSS: Was minimal, less than 10 mL total. MMODL / IJN: [id number] /
--- NOTE | 2017-04-14 13:22 | P.PN ---
Subjective Progress Note Date: 04/14/17 Principal diagnosis: Acute left lung collapse secondary to left lung mass obstructing left mainstem bronchus. this is a 67-year-old male patient, we'll came in to the hospital because of progressive worsening shortness of breath over the past few weeks. chest x-ray was done and showed volume loss on the left along with shift of the mediastinum to the left and complete opacification of the left lung. CAT scan of the chest that was done in my letter showed a large left upper lobe mass, a small left lower lobe pleural effusion, mediastinal lymphadenopathy involving the right paratracheal and subcarinal area in addition to possibility of a left hilar mass causing invasion of the distal left mainstem bronchus causing mass effect. there is a cutoff sign where various bronchi of the upper and lower lobe cannot be adequately visualized and there may be some endobronchial involvement with possibly a malignant process. the patient is quite stable at this point. He is on 2 L of oxygen nasal cannula. Denies having any significant chest pain. No hemoptysis no pleurisy. no weight loss. Is an ex-smoker. He's been involved and colon cancer that was resected back in 2009 and the patient did not require any systemic chemotherapy knowing that his disease was localized back then. He has chronic atrial fibrillation. He has been maintained on oral anticoagulants on outpatient basis which is currently on hold and the patient is on IV Lasix. no fever. No chills no sweats. he is a bit hoarse possibly related to vocal cord paralysis. Reevaluated today on 04/14/2017, patient is basically about the same, he is scheduled to undergo bronchoscopy today, discussed with the patient briefly the bronchoscopy procedure, he has been nothing by mouth overnight, heparin has been on hold since early this morning, and patient is denying any hemoptysis, no chest pain, he has chronic shortness of breath which has been progressively worse over the last few weeks. Objective - Vital Signs Vital signs: Vital Signs Temp 97.7 F 04/14/17 11:47 Pulse 93 04/14/17 12:00 Resp 16 04/14/17 12:00 BP 98/60 04/14/17 11:47 Pulse Ox 96 04/14/17 11:47 Intake & Output 04/13/17 04/14/17 04/14/17 18:59 06:59 18:59 Intake Total 357 268.739 300 Output Total 100 550 Balance 257 -281.261 300 Weight 87.6 kg Intake: IV 357 300 Azithromycin 500 mg In 125 Sodium Chloride 0.9% 250 ml @ 125 mls/hr IVPB [facility] Rx#:[id number] Heparin Sodium,Porcine/ 232 D5w Pmx 25,000 unit In Dextrose/Water 1 500ml. bag @ 20 mls/hr IV .Q24H [facility] Rx#:[id number] Intake, IV Titration 268.739 Amount Heparin Sodium,Porcine/ 268.739 D5w Pmx 25,000 unit In Dextrose/Water 1 500ml. bag @ 20 mls/hr IV .Q24H [facility] Rx#:[id number] Oral 0 Output: Urine 100 550 Other: Voiding Method Urinal Urinal # Voids 1 - Exam Physical Exam: Revealed a 67-year-old white male in no distress. HEENT:[Neck is supple.] [No neck masses.] [No thyromegaly.] [No JVD.] Chest: [Diminished breath sounds on the left side, normal on the right side,, no crackles, no rhonchi, no wheezes.] Cardiac Exam: [Normal S1 and S2, no S3 gallop, no murmur.] Abdomen: [Soft, nontender, no megaly, no rebound, no guarding, normal bowel sounds.] Extremities: [No clubbing, no edema, no cyanosis.] Neurological Exam: [No focal neurologic deficit. Psychiatric: Normal mood and affect, normal mental status examination. Lymphatic: No lymphadenopathy was appreciated on physical examination. Although noted on CT of the chest. Musculoskeletal: No weakness, normal range of motion, no tenderness. - Labs CBC & Chem 7: 04/14/17 05:09 Labs: Abnormal Lab Results - Last 24 Hours (Table) 04/13/17 04/13/17 04/13/17 Range/Units 16:05 21:51 22:22 Hgb (13.0-17.5) gm/dL MCHC (31.0-37.0) g/dL APTT (22.0-30.0) sec POC Glucose (mg/dL) 109 H (75-99) mg/dL Total Creatine Kinase 44 L 44 L (55-170) U/L 04/14/17 04/14/17 Range/Units 05:09 05:09 Hgb 12.0 L (13.0-17.5) gm/dL MCHC 30.4 L (31.0-37.0) g/dL APTT 33.2 H (22.0-30.0) sec POC Glucose (mg/dL) (75-99) mg/dL Total Creatine Kinase (55-170) U/L Microbiology - Last 24 Hours (Table) 04/12/17 18:15 Urine Culture - Final Urine,Voided 04/12/17 16:31 Blood Culture - Preliminary Blood No Growth after 24 hours Assessment and Plan Plan: 1 large left lung mass, most likely involving the left mainstem bronchus, with complete collapse of the left lung. 2 shortness of breath secondary to above 3 colon cancer previous colectomy back in 2009 4 coronary artery disease 5 chronic atrial fibrillation 6 hyperlipidemia 7 hypertension 8 history of hiatal hernia 9 history of ppyloroplasty and vagotomy for peptic ulcer disease. 10 status post bronchoscopy and biopsies of a large endobronchial tumor completely obstructing the distal left mainstem bronchus. 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 Hence I would go ahead and arrange for oncology and radiation oncology consultation on this patient Plan proceed with consultation to oncology and radiation oncology, patient clearly has an advanced age of bronchogenic carcinoma, he may benefit from chemo and radiation therapy.. Time with Patient: Less than 30
[2017-04-14] MEDS ORDERED: RX INFO: IV CONTRAST WAS GIVEN 1 EACH MISC MISCELLANE PRN (20:20)
[2017-04-14] MEDS: ATORVASTATIN 20 MG TAB PO SCH (20:38)
[2017-04-14] MEDS: PANTOPRAZOLE 40 MG TABLET PO SCH (20:38)
[2017-04-14] MEDS: DOXAZOSIN 4 MG TAB PO SCH (20:38)
--- NOTE | 2017-04-14 21:17 | P.CONS ---
History of Present Illness - Reason for Consult Consult date: 04/14/17 lung mass. Lymphadenopathy - History of Present Illness The patient is a 67-year-old white male, who had presented to pulmonary medicine, but complains of increasing shortness of breath over the past few weeks. He came into the ER because of continued progression of symptoms. Chest x-ray showed essentially complete collapse of the left lung. He had had a CT scan of the chest done at [place], showing evidence of bilateral hilar, as well as mediastinal adenopathy and evidence of possible mass causing obstruction of the left mainstem bronchus. A small amount of pleural effusion was also noted. The patient was therefore transferred and admitted for further management. Consult was placed for further evaluation and recommendations. The patient is status post bronchoscopy today. Operative report was reviewed. The right side appeared to be fairly unremarkable. On the left there was a mass greater than 2 cm from the alfonso, completely obstructing the left mainstem bronchus. Biopsies and brushings were taken from this area. Pathology is pending. Review of Systems Constitutional: Reports fatigue Eyes: denies blurred vision, denies pain Ears: deny: decreased hearing, ear discharge, earache, tinnitus Ears, nose, mouth and throat: Denies headache, Denies sore throat Cardiovascular: Reports shortness of breath Respiratory: Reports cough with sputum (mostly clear), Reports dyspnea Gastrointestinal: Reports diarrhea (mild, chronic , since surgery for early stage colon cancer in 2009) Genitourinary: Reports as per HPI Musculoskeletal: Denies myalgias Integumentary: Denies pruritus, Denies rash Neurological: Denies numbness, Denies weakness Endocrine: Reports fatigue Hematologic/Lymphatic: Reports as per HPI Past Medical History Past Medical History: Atrial Fibrillation, Coronary Artery Disease (CAD), Cancer ( colon cancer with previous colectomy in 2009), Chest Pain / Angina, COPD, Hyperlipidemia, Hypertension History of Any Multi-Drug Resistant Organisms: None Reported Past Surgical History: Adenoidectomy, Hernia Repair, Tonsillectomy Additional Past Surgical History / Comment(s): Vagotomy and pyloroplasty for peptic ulcer disease, Colonoscopy, Gastroscopy, Hemicolectomy for colon cancer. HYDROCELE REPAIR Past Anesthesia/Blood Transfusion Reactions: No Reported Reaction Past Psychological History: No Psychological Hx Reported Smoking Status: Former smoker Past Alcohol Use History: Daily Past Drug Use History: None Reported - Past Family History Mother Family Medical History: Dementia Father Additional Family Medical History / Comment(s): KILLED CAR ACCIDENT AT 36 YEARS OLD Medications and Allergies Home Medications Medication Instructions Recorded Confirmed Type Albuterol Inhaler [Ventolin Hfa 1 - 2 puff INHALATION RT-QID PRN 04/12/17 History Inhaler] Apixaban [Eliquis] 5 mg PO BID 04/12/17 04/12/17 History Metoprolol Tartrate [Lopressor] 50 mg PO BID 04/12/17 04/12/17 History Multivitamins, Thera [Multivitamin 1 tab PO DAILY 04/12/17 04/12/17 History (formulary)] Omeprazole 20 mg PO HS 04/12/17 04/12/17 History Simvastatin 40 mg PO HS 04/12/17 04/12/17 History Terazosin HCl 10 mg PO HS 04/12/17 04/12/17 History Allergies Allergy/AdvReac Type Severity Reaction Status Date / Time No Known Allergies Allergy Verified 04/12/17 15:50 Physical Exam Vitals: Vital Signs Temp Pulse Pulse Pulse Resp BP Pulse Ox 04/14/17 15:57 100 93 16 04/14/17 15:42 92 04/14/17 15:35 92 04/14/17 12:00 100 93 16 04/14/17 11:47 97.7 F 100 16 98/60 96 04/14/17 11:35 96 04/14/17 11:28 92 04/14/17 08:21 100 04/14/17 08:13 96 04/14/17 08:00 98.6 F 95 93 16 108/59 94 L 04/14/17 04:00 98.5 F 102 H 18 102/68 94 L 04/13/17 23:48 89 18 04/13/17 23:43 97.9 F 89 18 106/68 97 04/13/17 20:00 98.5 F 94 93 18 129/68 95 Intake and Output 04/14/17 04/14/17 04/14/17 06:59 14:59 22:59 Intake Total 268.739 300 Output Total 550 Balance -281.261 300 Intake: IV 300 Intake, IV Titration 268.739 Amount Heparin Sodium,Porcine/ 268.739 D5w Pmx 25,000 unit In Dextrose/Water 1 500ml. bag @ 20 mls/hr IV .Q24H [facility] Rx#:[id number] Output: Urine 550 Other: Voiding Method Urinal # Voids 1 Weight 87.6 kg - Constitutional General appearance: no acute distress - EENT Eyes: EOMI, PERRLA ENT: hearing grossly normal, normal oropharynx - Neck Neck: no lymphadenopathy Thyroid: bilateral: normal size - Respiratory Respiratory: left: diminished (air entry only in upper 1/2 of upper lobe) - Cardiovascular Rhythm: regular Heart sounds: normal: S1, S2 - Gastrointestinal General gastrointestinal: normal bowel sounds, soft - Integumentary Integumentary: normal - Neurologic Neurologic: CNII-XII intact - Musculoskeletal Musculoskeletal: strength equal bilaterally - Psychiatric Psychiatric: A&O x's 3 Results CBC & Chem 7: 04/14/17 05:09 Labs: Abnormal Lab Results - Last 24 Hours (Table) 04/13/17 04/13/17 04/14/17 Range/Units 21:51 22:22 05:09 Hgb 12.0 L (13.0-17.5) gm/dL MCHC 30.4 L (31.0-37.0) g/dL APTT (22.0-30.0) sec POC Glucose (mg/dL) 109 H (75-99) mg/dL Total Creatine Kinase 44 L (55-170) U/L 04/14/17 Range/Units 05:09 Hgb (13.0-17.5) gm/dL MCHC (31.0-37.0) g/dL APTT 33.2 H (22.0-30.0) sec POC Glucose (mg/dL) (75-99) mg/dL Total Creatine Kinase (55-170) U/L Microbiology - Last 24 Hours (Table) 04/12/17 18:15 Urine Culture - Final Urine,Voided 04/12/17 16:31 Blood Culture - Preliminary Blood No Growth after 24 hours Chest x-ray: report reviewed CT scan - chest: report reviewed Assessment and Plan (1) Lung mass Narrative/Plan: imaging studies and operative note were reviewed. The clinical picture is highly suggestive of malignancy, with lung primary being the major differential. The CT scan is indicative of mediastinal involvement. the impression was discussed in detail with the patient. At this time, we will await biopsy results to establish diagnosis. The patient will need additional staging, assuming that lung primary is confirmed. CT scan of the brain will be ordered. The patient will also need a PET scan which will be scheduled as an outpatient. If a lung primary is established, the patient appears to have at least stage III disease. Treatment recommendations for guidelines for stage III versus stage IV lung primary were discussed briefly. Current Visit: Yes Status: Acute Code(s): R91.8 - OTHER NONSPECIFIC ABNORMAL FINDING OF LUNG FIELD SNOMED Code(s): 051491414
--- NOTE | 2017-04-14 23:38 | P.PN ---
Subjective Progress Note Date: 04/14/17 Principal diagnosis: Shortness of breath left lung mass Patient is a 67-year-old male with a known history of atrial fibrillation on anticoagulant with eliquis, COPD, history of smoking quit 7 years ago, history of colon cancer in 2010 status post two thirds of colon resection came to the hospital with altered mentation and confusion for the past 1 week. Patient has not been feeling well. Patient is also not eating well. Patient was also having worsening difficulty breathing and congestion. Patient initially presented to [facility]. Patient did have chest x-ray and computed tomography scan at that time. Computed tomography scan showed left lung mass and complete her prescription of left lung with effusion. Patient was also found to have its fibrillation with rapid lower rate. Patient was sent to [facility] for further evaluation by pulmonary and cardiology. Patient was started on Cardizem drip. Patient does take metoprolol at home. Patient denied a otherwise fever or chills. Patient does have cough with whitish sputum production. Patient did not have any prior chemotherapy or radiation. 04/13/2017 Patient denied any new complaints of chest pain or worsening short of breath. Heart rate is still elevated. No fever no chills. Beta cody dose has been changed to 3 times daily. Pulmonary is planning for bronchoscopy tomorrow. Continue with heparin drip 04/14/2017 Patient denied any complaints of chest pain or short of breath. Patient is scheduled for bronchoscopy today after. Heparin is on hold. We will continue the current management. Patient denied any fever or chills. No hemoptysis. No nausea vomiting. All other review of systems negative except the above Current medications reviewed Objective - Vital Signs Vital signs: Vital Signs Temp 98 F 04/14/17 16:00 Pulse 122 H 04/14/17 16:00 Resp 16 04/14/17 16:00 BP 110/55 04/14/17 16:00 Pulse Ox 94 L 04/14/17 16:00 Intake & Output 04/14/17 04/14/17 04/15/17 06:59 18:59 06:59 Intake Total 268.739 680.826 Output Total 550 150 Balance -281.261 530.826 Weight 87.6 kg Intake: IV 300 Intake, IV Titration 268.739 280.826 Amount Heparin Sodium,Porcine/ 268.739 280.826 D5w Pmx 25,000 unit In Dextrose/Water 1 500ml. bag @ 20 mls/hr IV .Q24H [facility] Rx#:[id number] Oral 100 Output: Urine 550 150 Other: Voiding Method Urinal # Voids 1 1 - Exam PHYSICAL EXAMINATION: Patient is lying in the bed comfortably, no acute distress, awake alert and oriented.. HEENT: Normocephalic. Neck is supple. Pupils reactive. Nostrils clear. Oral cavity is moist. Ears reveal no drainage. Neck reveals no JVD, carotid bruits, or thyromegaly. CHEST EXAMINATION: Trachea is central. Symmetrical expansion. Diminished breath sounds on the left side. CARDIAC: Normal S1, S2 with no gallops. No murmurs ABDOMEN: Soft. Bowel sounds normal. No organomegaly. No abdominal bruits. Extremities: reveal no edema. No clubbing or cyanosis Neurologically awake, alert, oriented x3 with well-coordinated movements. No focal deficits noted Skin: No rash or skin lesions. Psychiatric: Cooperative. Nonsuicidal Musculoskeletal: No joint swelling or deformity. Normal range of motion. - Labs CBC & Chem 7: 04/14/17 05:09 Labs: Abnormal Lab Results - Last 24 Hours (Table) 04/13/17 04/14/17 04/14/17 Range/Units 22:22 05:09 05:09 Hgb 12.0 L (13.0-17.5) gm/dL MCHC 30.4 L (31.0-37.0) g/dL APTT 33.2 H (22.0-30.0) sec Total Creatine Kinase 44 L (55-170) U/L Microbiology - Last 24 Hours (Table) 04/12/17 16:31 Blood Culture - Preliminary Blood No Growth after 48 hours 04/12/17 18:15 Urine Culture - Final Urine,Voided Assessment and Plan Assessment: #1 atrial fibrillation with a rapid irregular rate. Improved. On anticoagulation at home #2 shortness of breath secondary to left-sided lung mass with pleural effusion. As per CT chest #3 history of colon cancer status post two thirds of colon resection in 2009 #4 history of cigarette smoking quit in 2009 #5 COPD not in exacerbation #6 hypertension #7 possible pneumonia #8 history of ppyloroplasty and vagotomy for peptic ulcer disease. #9 chronic atrial fibrillation Plan: Patient will be continued on metoprolol. Dose increase. DC'd Cardizem drip. Patient was started on heparin IV for possible surgical intervention by pulmonary. bronchoscopy scheduled for today. We will continue the home medications. Current with antibiotics and breathing treatments. Prognosis is guarded. Further recommendations based on the clinical course. Discussed with family at bedside.
[2017-04-15 06:50] LABS: Basophils % (A) 0 %; CH 28.2; CHCM 30.7; Eosinophils # (A) 0.1 k/uL (0-0.7); Eosinophils % (A) 2 %; HCT 39.2 % (39.0-53.0); HDW 2.58; HGB 11.9 gm/dL (13.0-17.5); Hypochromasia Slight; Luc # (Auto) 0.11; Luc % (Auto) 2; Lymphocytes # (A) 1.3 k/uL (1.0-4.8); Lymphocytes % (A) 20 %; MCH 27.9 pg (25.0-35.0); MCHC 30.3 g/dL (31.0-37.0); Mean Platelet Volume 6.8; Monocytes # (A) 0.6 k/uL (0-1.0); Monocytes % (A) 9 %; Neutrophils # (A) 4.5 k/uL (1.3-7.7); Neutrophils % (A) 68 %; RBC 4.26 m/uL (4.30-5.90); RDW 12.5 % (11.5-15.5); WBC 6.6 k/uL (3.8-10.6); WBC (Perox) 6.57
[2017-04-15 07:05] LABS: Anion Gap 6 mmol/L; Blood Urea Nitrogen 14 mg/dL (9-20); Calcium 8.3 mg/dL (8.4-10.2); Carbon Dioxide 30 mmol/L (22-30); Chloride 106 mmol/L (98-107); Glucose 94 mg/dL (74-99); Non-African American GFR(MDRD) >60 (>60 ml/min/1.73 sqM); Potassium 4.1 mmol/L (3.5-5.1); Sodium 142 mmol/L (137-145)
[2017-04-15] MEDS: IPRATROPIUM-ALBUTEROL 3 ML NEB INHALATION SCH ×3 (08:10→15:38)
[2017-04-15 08:50] VITALS: TEMP 98.1
[2017-04-15] MEDS: AZITHROMYCIN 500 MG TAB PO SCH (10:22)
[2017-04-15] MEDS: METOPROLOL TARTRATE 50 MG TAB PO SCH (10:23)
[2017-04-15] MEDS: MULTIVITAMINS, THERA 1 EACH TAB PO SCH (10:23)
--- NOTE | 2017-04-15 11:07 | ECHOF ---
Referral Reason:afib MEASUREMENTS -------- HEIGHT: 182.9 cm WEIGHT: 87.5 kg BP: RVIDd: 3.5 cm (< 3.3) IVSd: 1.6 cm (0.6 - 1.1) LVIDd: 3.8 cm (3.9 - 5.3) LVPWd: 1.7 cm (0.6 - 1.1) IVSs: 2.2 cm LVIDs: 1.7 cm LVPWs: 1.9 cm Ao Diam: 3.8 cm (2.0 - 3.7) AV Cusp: 2.3 cm (1.5 - 2.6) LA Diam: 3.7 cm (2.7 - 3.8) AR PHT: 624 ms RAP: 5.00 mmHg RVSP: 18.36 mmHg FINDINGS -------- Atrial fibrillation. This was a technically adequate study. The left ventricular size is normal. There is severe concentric left ventricular hypertrophy. Ove rall left ventricular systolic function is normal with, an EF between 55 - 60 %. The right ventricle is normal in size and function. The left atrium is normal in size. The right atrium is normal in size. The aortic valve is trileaflet, and appears structurally normal. No aortic stenosis or regurgitation. The mitral valve is normal. There is trace mitral regurgitation. Trace tricuspid regurgitation present. The right ventricular systolic pressure, as measured by Dopp ler, is 18.36mmHg. The pulmonic valve was not well visualized. There is no pulmonic regurgitation present. The aortic root is mildy dilated. There is a small, generalized pericardial effusion present. CONCLUSIONS -------- 1. Atrial fibrillation. 2. This was a technically adequate study. 3. There is severe concentric left ventricular hypertrophy. 4. Overall left ventricular systolic function is normal with, an EF between 55 - 60 %. 5. The left atrium is normal in size. 6. The aortic valve is trileaflet, and appears structurally normal. No aortic stenosis or regurgitati on. 7. There is trace mitral regurgitation. 8. Trace tricuspid regurgitation present. 9. The right ventricular systolic pressure, as measured by Doppler, is 18.36mmHg. 10. The pulmonic valve was not well visualized. 11. There is no pulmonic regurgitation present. 12. The aortic root is mildy dilated. 13. There is a small, generalized pericardial effusion present. SKIP HOIST OPERATOR: Radha Clay RDCS
[2017-04-15] MEDS: cefTRIAXone IN SWFI 1,000 MG/10 ML SYRINGE IVP SCH (11:17)
--- NOTE | 2017-04-15 12:10 | CT ---
EXAMINATION TYPE: CT brain w con DATE OF EXAM: 04/15/2017 COMPARISON: NONE INDICATION: Lung cancer DLP: 978.20 mGycm, Automated exposure control for dose reduction was used. CONTRAST: [address] of the brain is performed utilizing 3 mm thick sections through the posterior fossa and 3 mm thick sections through the remaining calvarium. Study is performed within 24 hours of arrival to the hosp ital. No abnormal hyperdensity is present to suggest an acute intracranial hemorrhage. No mass lesion is evident. No acute infarcts are evident. An old medial left occipital lobe infarct appears to be present. No ab normal enhancement is evident within this region. Ventricles and sulci are appropriate for the patient age. Paranasal sinuses and mastoid air cells within the [id number] are clear. IMPRESSIONS: 1. Old left occipital lobe infarct. 2. No abnormal enhancement. 3. No suspicious changes for metastatic disease.
--- NOTE | 2017-04-15 12:15 | P.PN ---
Subjective Progress Note Date: 04/15/17 Principal diagnosis: Acute left lung collapse secondary to left lung mass obstructing the left main stem bronchus. this is a 67-year-old male patient, we'll came in to the hospital because of progressive worsening shortness of breath over the past few weeks. chest x-ray was done and showed volume loss on the left along with shift of the mediastinum to the left and complete opacification of the left lung. CAT scan of the chest that was done in my letter showed a large left upper lobe mass, a small left lower lobe pleural effusion, mediastinal lymphadenopathy involving the right paratracheal and subcarinal area in addition to possibility of a left hilar mass causing invasion of the distal left mainstem bronchus causing mass effect. there is a cutoff sign where various bronchi of the upper and lower lobe cannot be adequately visualized and there may be some endobronchial involvement with possibly a malignant process. the patient is quite stable at this point. He is on 2 L of oxygen nasal cannula. Denies having any significant chest pain. No hemoptysis no pleurisy. no weight loss. Is an ex-smoker. He's been involved and colon cancer that was resected back in 2009 and the patient did not require any systemic chemotherapy knowing that his disease was localized back then. He has chronic atrial fibrillation. He has been maintained on oral anticoagulants on outpatient basis which is currently on hold and the patient is on IV Lasix. no fever. No chills no sweats. he is a bit hoarse possibly related to vocal cord paralysis. Reevaluated today on 04/14/2017, patient is basically about the same, he is scheduled to undergo bronchoscopy today, discussed with the patient briefly the bronchoscopy procedure, he has been nothing by mouth overnight, heparin has been on hold since early this morning, and patient is denying any hemoptysis, no chest pain, he has chronic shortness of breath which has been progressively worse over the last few weeks. The patient is seen again today 04/15/2017 in follow-up on the selective care unit. He is currently awake and alert in no acute distress. He did undergo bronchoscopy with biopsies by Dr. Calvert yesterday. Pathology is pending. He denies any worsening shortness of breath, cough or congestion. He is maintaining good O2 saturations in the mid 90s on 2 L/m per nasal cannula. He has been afebrile. No leukocytosis. Creatinine 1.00. His heart rate is better controlled. He remains on a heparin drip. Objective - Vital Signs Vital signs: Vital Signs Temp 98.1 F 04/15/17 08:00 Pulse 88 04/15/17 11:44 Resp 16 04/15/17 08:10 BP 119/64 04/15/17 08:00 Pulse Ox 95 04/15/17 08:10 Intake & Output 04/14/17 04/15/17 04/15/17 18:59 06:59 18:59 Intake Total 680.826 Output Total 150 300 Balance 530.826 -300 Weight 85.5 kg Intake: IV 300 Intake, IV Titration 280.826 Amount Heparin Sodium,Porcine/ 280.826 D5w Pmx 25,000 unit In Dextrose/Water 1 500ml. bag @ 20 mls/hr IV .Q24H [facility] Rx#:[id number] Oral 100 Output: Urine 150 300 Other: Voiding Method Urinal Urinal # Voids 1 1 - Exam GENERAL EXAM: Alert, active, comfortable in no apparent distress. HEAD: Normocephalic. EYES: Normal reaction of pupils, equal size. NOSE: Clear with pink turbinates. THROAT: No erythema or exudates. NECK: No masses, no JVD. CHEST: No chest wall deformity. LUNGS: Equal air entry with few scattered rhonchi in the left lung, diminished. CVS: S1 and S2 normal with no audible murmur, irregular rhythm. ABDOMEN: No hepatosplenomegaly, normal bowel sounds, no guarding or rigidity. SPINE: No scoliosis or deformity SKIN: No rashes CENTRAL NERVOUS SYSTEM: No focal deficits, tone is normal in all 4 extremities. EXTREMITIES: There is no peripheral edema. No clubbing, no cyanosis. Peripheral pulses are intact. - Labs CBC & Chem 7: 04/15/17 05:42 04/15/17 05:42 Labs: Abnormal Lab Results - Last 24 Hours (Table) 04/14/17 04/15/17 04/15/17 Range/Units 23:29 05:42 05:42 RBC 4.26 L (4.30-5.90) m/uL Hgb 11.9 L (13.0-17.5) gm/dL MCHC 30.3 L (31.0-37.0) g/dL APTT 51.6 H (22.0-30.0) sec Calcium 8.3 L (8.4-10.2) mg/dL 04/15/17 Range/Units 05:42 RBC (4.30-5.90) m/uL Hgb (13.0-17.5) gm/dL MCHC (31.0-37.0) g/dL APTT 48.2 H (22.0-30.0) sec Calcium (8.4-10.2) mg/dL Microbiology - Last 24 Hours (Table) 04/12/17 16:31 Blood Culture - Preliminary Blood No Growth after 48 hours Assessment and Plan Assessment: 1 large left lung mass, most likely involving the left mainstem bronchus, with complete collapse of the left lung. status post bronchoscopy and biopsies of a large endobronchial tumor completely obstructing the distal left mainstem bronchus. 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 Pathology is pending. 2 shortness of breath secondary to above 3 colon cancer previous colectomy back in 2009 4 coronary artery disease 5 chronic atrial fibrillation 6 hyperlipidemia 7 hypertension 8 history of hiatal hernia 9 history of ppyloroplasty and vagotomy for peptic ulcer disease. 10 atrial fibrillation, currently on a heparin drip. A cardiogram reveals preserved left ventricular systolic function. Plan The patient was seen and evaluated by Dr. Calvert. He is currently stable from the pulmonary standpoint. We'll have a follow-up chest x-ray done. The patient will be seen and evaluated by oncology. A computed tomography scan of the brain is pending. The patient also was to be seen by radiation oncology. The patient does however utilize the [facility] and may need follow-up with them in regards his treatment. He is also requesting if he needs radiation or chemotherapy if that could be done in [place] closer to his home. Social work will be involved. We'll continue to follow.
--- NOTE | 2017-04-15 12:25 | P.PN ---
Subjective Progress Note Date: 04/15/17 Principal diagnosis: Shortness of breath and chest discomfort This is a 67-year-old gentleman with history of chronic persistent atrial fibrillation, COPD, hypertension, hyperlipidemia, history of colon cancer for which he underwent a colon resection a few years ago. He was transferred from her [facility] hospital because of mental status changes. Patient was seen in consultation by Dr. Nguyễn yesterday. Patient has been experiencing symptoms of exertional dyspnea as well as pleuritic type chest discomfort. He underwent a chest x-ray which revealed complete opacification of the left lung there is concern regarding lung cancer. Patient continues to be in atrial fibrillation heart rate today is in the 90s to low 100s, blood pressure 98/60. According to pulmonary's documentation, CAT scan that was performed revealed a large left upper lobe mass, small left lower lobe pleural effusion, mediastinal lymphadenopathy involving the right paratracheal and subcarinal area in addition to the possibility of a left hilar mass causing invasion at the distal left main stem bronchus causing a mass effect. Likely a malignant process. He is scheduled to undergo bronchoscopy today. Anticoagulation is currently been placed on hold. White blood cell count 12.0, platelet count 319. 04/15/2017 Patient seen and examined this morning, he did undergo bronchoscopy yesterday, results yet pending. He needs to be in atrial fibrillation, heart rate in the 80s today. Arrangements are being made for possible discharge home today, we will discontinue the IV heparin and resume the patient's Eliquis. A follow-up appointment will be made in the office post discharge. Objective - Vital Signs Vital signs: Vital Signs Temp 98.1 F 04/15/17 08:00 Pulse 88 04/15/17 11:59 Resp 16 04/15/17 08:10 BP 119/64 04/15/17 08:00 Pulse Ox 95 04/15/17 08:10 Intake & Output 04/14/17 04/15/17 04/15/17 18:59 06:59 18:59 Intake Total 680.826 Output Total 150 300 Balance 530.826 -300 Weight 85.5 kg Intake: IV 300 Intake, IV Titration 280.826 Amount Heparin Sodium,Porcine/ 280.826 D5w Pmx 25,000 unit In Dextrose/Water 1 500ml. bag @ 20 mls/hr IV .Q24H [facility] Rx#:[id number] Oral 100 Output: Urine 150 300 Other: Voiding Method Urinal Urinal # Voids 1 1 - Exam PHYSICAL EXAMINATION: HEENT: Head is atraumatic, normocephalic. Pupils equal, round. Neck is supple. There is no elevated jugular venous pressure. HEART EXAMINATION: Heart S1 and S2 irregularly irregular CHEST EXAMINATION:lungs reveal absent breath sounds on the left. ABDOMEN: Soft, nontender. Bowel sounds are heard. No organomegaly noted. EXTREMITIES: 2+ peripheral pulses with no evidence of peripheral edema and no calf tenderness noted. NEUROLOGIC patient is awake, alert and oriented -3. . - Labs CBC & Chem 7: 04/15/17 05:42 04/15/17 05:42 Labs: Abnormal Lab Results - Last 24 Hours (Table) 04/14/17 04/15/17 04/15/17 Range/Units 23:29 05:42 05:42 RBC 4.26 L (4.30-5.90) m/uL Hgb 11.9 L (13.0-17.5) gm/dL MCHC 30.3 L (31.0-37.0) g/dL APTT 51.6 H (22.0-30.0) sec Calcium 8.3 L (8.4-10.2) mg/dL 04/15/17 Range/Units 05:42 RBC (4.30-5.90) m/uL Hgb (13.0-17.5) gm/dL MCHC (31.0-37.0) g/dL APTT 48.2 H (22.0-30.0) sec Calcium (8.4-10.2) mg/dL Microbiology - Last 24 Hours (Table) 04/12/17 16:31 Blood Culture - Preliminary Blood No Growth after 48 hours Assessment and Plan Plan: Assessment and plan #1 chest pain, atypical in nature, pleuritic. Troponins negative 3. #2 large left upper lobe mass in addition to a mass in the distal left mainstem bronchus. S/p bronchoscopy #3 history of colon cancer with prior colectomy #4 chronic persistent atrial fibrillation #5 hyperlipidemia #6 hypertension PLAN Echocardiogram with Doppler study was performed which revealed a normal left ventricular systolic function. His evidence of a small generalized pericardial effusion. Patient may be able to be discharged home cleared by pulmonary and primary. We will discontinue the IV heparin and resume the patient's Eliquis 5 mg one tablet by mouth twice a day.A follow-up appointment will be made in the office post discharge. DNP note has been reviewed, I agree with a documented findings and plan of care. Patient was seen and examined.
[2017-04-15] MEDS ORDERED: APIXABAN 5 MG TAB PO SCH (12:30)
--- NOTE | 2017-04-15 12:56 | XR ---
EXAMINATION TYPE: XR chest 1V portable DATE OF EXAM: 04/15/2017 COMPARISON: Prior chest x-ray 04/13/2017, chest CT from outside institution 04/12/2017 HISTORY: Status post biopsy TECHNIQUE: Single frontal view of the chest is obtained. FINDINGS: Persistent opacification of the left hemithorax. Right hemithorax appears well aerated, in determinate nodularity present as noted on CT. Patient is rotated. No evident pneumothorax. Heart is obscured. IMPRESSION: Stable exam. Opacified left hemithorax. Indeterminate lung nodules in the right lung.
[2017-04-15] MEDS: HEPARIN SODIUM,PORCINE/D5W PMX 25,000 UNIT in DEXTROSE/WATER 1 500ML.BAG IV SCH (13:01)
--- NOTE | 2017-04-15 15:14 | P.CONS ---
History of Present Illness - Reason for Consult Consult date: 04/15/17 lung mass causing collapse Requesting physician: Sonali Calvert - Chief Complaint Dyspnea - History of Present Illness Patient is a 67-year-old male who presented with progressive dyspnea on exertion. The patient notes that he has been feeling more short of breath for the past 2 weeks. He reports that he has had persistent cough, as well as some mild chest wall discomfort. The patient was seen in [facility], and was ultimately transferred to [facility] with he was found to be in atrial fibrillation with rapid ventricular response. While at our [facility], the patient had a CTA of the chest which revealed collapse of the left lung, with suspicious left hilar mass. There was also suspicious adenopathy involving the bilateral mediastinum and subcarinal. Upon admission to [facility], the patient underwent bronchoscopy on April 14, 2017. Airways were within normal limits on the right side, however within the left mainstem bronchus, there was a large obstructing tumor more than 2 cm from the alfonso completely occluding the left upper lobe, lingula and lower lobe bronchi. Biopsies performed of the mass are pending at this time. The patient has felt somewhat better since his admission at [facility]. He has been stable on 2 L of oxygen. He is able to ambulate to the bathroom, but does have increased dyspnea with exertion. He is no longer having any difficulty with chest wall pain, and denies hemoptysis or abnormal weight loss. Past Medical History Past Medical History: Atrial Fibrillation, Coronary Artery Disease (CAD), Cancer ( colon cancer with previous colectomy in 2009), Chest Pain / Angina, COPD, Hyperlipidemia, Hypertension History of Any Multi-Drug Resistant Organisms: None Reported Past Surgical History: Adenoidectomy, Hernia Repair, Tonsillectomy Additional Past Surgical History / Comment(s): Vagotomy and pyloroplasty for peptic ulcer disease, Colonoscopy, Gastroscopy, Hemicolectomy for colon cancer. HYDROCELE REPAIR Past Anesthesia/Blood Transfusion Reactions: No Reported Reaction Past Psychological History: No Psychological Hx Reported Smoking Status: Former smoker (Smoked 40 years, 1.5 pack/day avg) Past Alcohol Use History: Daily Past Drug Use History: None Reported - Past Family History Mother Family Medical History: Dementia Father Additional Family Medical History / Comment(s): KILLED CAR ACCIDENT AT 36 YEARS OLD Medications and Allergies Home Medications Medication Instructions Recorded Confirmed Type Albuterol Inhaler [Ventolin Hfa 1 - 2 puff INHALATION RT-QID PRN 04/12/17 History Inhaler] Apixaban [Eliquis] 5 mg PO BID 04/12/17 04/12/17 History Metoprolol Tartrate [Lopressor] 50 mg PO BID 04/12/17 04/12/17 History Multivitamins, Thera [Multivitamin 1 tab PO DAILY 04/12/17 04/12/17 History (formulary)] Omeprazole 20 mg PO HS 04/12/17 04/12/17 History Simvastatin 40 mg PO HS 04/12/17 04/12/17 History Terazosin HCl 10 mg PO HS 04/12/17 04/12/17 History Allergies Allergy/AdvReac Type Severity Reaction Status Date / Time No Known Allergies Allergy Verified 04/12/17 15:50 Physical Exam Vitals: Vital Signs Temp Pulse Pulse Pulse Resp BP Pulse Ox 04/15/17 11:59 88 04/15/17 11:44 88 04/15/17 09:01 83 04/15/17 08:10 83 16 95 04/15/17 08:00 98.1 F 122 H 16 119/64 95 04/15/17 04:00 97.9 F 95 16 106/76 95 04/15/17 00:00 98.0 F 91 16 102/58 97 04/14/17 20:00 98.2 F 102 H 16 116/72 91 L 04/14/17 16:00 98 F 122 H 16 110/55 94 L 04/14/17 15:57 100 93 16 04/14/17 15:42 92 04/14/17 15:35 92 Intake and Output 04/15/17 04/15/17 04/15/17 06:59 14:59 22:59 Intake Total 240 Output Total 300 Balance -60 Intake: Oral 240 Output: Urine 300 Other: Voiding Method Urinal # Voids 1 Weight 85.5 kg - Constitutional General appearance: average body habitus, no acute distress - EENT Eyes: EOMI, PERRLA ENT: hearing grossly normal - Neck Neck: no lymphadenopathy - Respiratory Respiratory: right: CTA, left: diminished - Cardiovascular Rhythm: irregularly irregular - Gastrointestinal General gastrointestinal: no tenderness - Integumentary Integumentary: no cellulitis, no flushed - Neurologic Neurologic: CNII-XII intact - Psychiatric Psychiatric: A&O x's 3, appropriate affect Results CBC & Chem 7: 04/15/17 05:42 04/15/17 05:42 Labs: Abnormal Lab Results - Last 24 Hours (Table) 04/14/17 04/15/17 04/15/17 Range/Units 23:29 05:42 05:42 RBC 4.26 L (4.30-5.90) m/uL Hgb 11.9 L (13.0-17.5) gm/dL MCHC 30.3 L (31.0-37.0) g/dL APTT 51.6 H (22.0-30.0) sec Calcium 8.3 L (8.4-10.2) mg/dL 04/15/17 Range/Units 05:42 RBC (4.30-5.90) m/uL Hgb (13.0-17.5) gm/dL MCHC (31.0-37.0) g/dL APTT 48.2 H (22.0-30.0) sec Calcium (8.4-10.2) mg/dL Microbiology - Last 24 Hours (Table) 04/12/17 16:31 Blood Culture - Preliminary Blood No Growth after 48 hours Abdominal x-ray: report reviewed, image reviewed CT scan - chest: image reviewed Assessment and Plan (1) Lung mass Current Visit: Yes Status: Acute Code(s): R91.8 - OTHER NONSPECIFIC ABNORMAL FINDING OF LUNG FIELD SNOMED Code(s): 810014343 Plan: 1. The patient's findings are highly concerning for a primary lung malignancy. Clinically this is at least a T3 tumor considering the entire lung collapse, and likely N3 as well considering there is suspicious supraclavicular adenopathy on the CT scan. CT scan of the brain is negative. The patient will require an outpatient PET/CT to rule out distant metastatic disease. I explained to the patient, that if disease is limited to the thorax, concurrent chemoradiation may be recommended depending on histology. Indicates that the patient has distant disease, he may still benefit from palliative radiotherapy secondary to his complete lung collapse. The patient and his live in [facility]. They are approximately 1 mile away from the [facility]. They expressed desire to have follow- up with radiotherapy at this center. I gave them our office information, if the patient decides he would like to get treatment at our facility. Time with Patient: Greater than 30
[2017-04-15 16:31] VITALS: BP 108/70; PULSE 112
--- NOTE | 2017-04-17 00:42 | P.DS ---
Providers Date of admission: 04/12/17 16:17 Expected date of discharge: 04/15/17 Attending physician: Jeronimo Hannah Consults: 04/12/17 16:19 Consult Physician Urgent Consulting Provider: Kelsi Arizmendi Consult Reason/Comments: Large lung mass and effusion Do you want consulting provider notified?: Yes 04/12/17 16:20 Consult Physician Urgent Consulting Provider: Duke Nunez Consult Reason/Comments: a fib w rvr Do you want consulting provider notified?: Yes Consult Physician Urgent Consulting Provider: Ash Nye Consult Reason/Comments: lung mass Do you want consulting provider notified?: Yes 04/14/17 13:22 Consult Physician Routine Consulting Provider: Ash Nye Consult Reason/Comments: lung ca Do you want consulting provider notified?: Yes, Notify in am 04/14/17 13:23 Consult Physician Routine Consulting Provider: Dante Lake Consult Reason/Comments: lung mass left main stem endo bronchial tumor Do you want consulting provider notified?: Yes, Notify in am Primary care physician: Marc Smith [facility] Course: Discharge diagnosis #1 atrial fibrillation with a rapid irregular rate. Improved. On anticoagulation at home #2 shortness of breath secondary to left-sided lung mass with pleural effusion. As per CT chest. Status post bronchoscopy and lung biopsy. #3 history of colon cancer status post two thirds of colon resection in 2009 #4 history of cigarette smoking quit in 2009 #5 COPD not in exacerbation #6 hypertension #7 possible pneumonia #8 history of ppyloroplasty and vagotomy for peptic ulcer disease. #9 chronic atrial fibrillation Hospital course Patient is a 67-year-old male with a known history of atrial fibrillation on anticoagulant with eliquis, COPD, history of smoking quit 7 years ago, history of colon cancer in 2009 status post two thirds of colon resection came to the hospital with altered mentation and confusion for the past 1 week. Patient has not been feeling well. Patient is also not eating well. Patient was also having worsening difficulty breathing and congestion. Patient initially presented to [facility]. Patient did have chest x-ray and computed tomography scan at that time. Computed tomography scan showed left lung mass and complete her prescription of left lung with effusion. Patient was also found to have its fibrillation with rapid lower rate. Patient was sent to [facility] for further evaluation by pulmonary and cardiology. Patient was started on Cardizem drip. Patient does take metoprolol at home. Patient denied a otherwise fever or chills. Patient does have cough with whitish sputum production. Patient did not have any prior chemotherapy or radiation. 04/13/2017 Patient denied any new complaints of chest pain or worsening short of breath. Heart rate is still elevated. No fever no chills. Beta cody dose has been changed to 3 times daily. Pulmonary is planning for bronchoscopy tomorrow. Continue with heparin drip 04/14/2017 Patient denied any complaints of chest pain or short of breath. Patient is scheduled for bronchoscopy today after. Heparin is on hold. We will continue the current management. Patient denied any fever or chills. No hemoptysis. No nausea vomiting. 04/15/2017 Patient denied any new complaints today. Patient had bronchoscopy with biopsy. Patient was seen by oncology as well as radiation oncology. Planning for outpatient palliative radiation once the tissue diagnosis is available. Patient advised to follow as an outpatient otherwise patient is stable to be discharged home today Discharge physical examination was done Patient Condition at Discharge: Serious Plan - Discharge Summary Discharge Rx Participant: No New Discharge Prescriptions: Continue Simvastatin 40 mg PO HS Multivitamins, Thera [Multivitamin (formulary)] 1 tab PO DAILY Metoprolol Tartrate [Lopressor] 50 mg PO BID Apixaban [Eliquis] 5 mg PO BID Albuterol Inhaler [Ventolin Hfa Inhaler] 1 - 2 puff INHALATION RT-QID PRN PRN Reason: Shortness Of Breath Terazosin HCl 10 mg PO HS Omeprazole 20 mg PO HS Discharge Medication List Albuterol Inhaler [Ventolin Hfa Inhaler] 1 - 2 puff INHALATION RT-QID PRN [History] Apixaban [Eliquis] 5 mg PO BID 04/12/17 [History] Metoprolol Tartrate [Lopressor] 50 mg PO BID 04/12/17 [History] Multivitamins, Thera [Multivitamin (formulary)] 1 tab PO DAILY 04/12/17 [History ] Omeprazole 20 mg PO HS 04/12/17 [History] Simvastatin 40 mg PO HS 04/12/17 [History] Terazosin HCl 10 mg PO HS 04/12/17 [History] Follow up Appointment(s)/Referral(s): Ash Nye MD [STAFF PHYSICIAN] - 1 Week (Office is currently closed. Please call to make appointment.) Macho Nguyễn MD [STAFF PHYSICIAN] - 04/22/17 3:15 pm (Friday) Marc Smith MD [Primary Care Provider] - 04/24/17 10:45 am () Patient Instructions/Handouts: *Surgery [facility] - Bronchoscopy Discharge Instructions, A-fib (Atrial Fibrillation) (DC) Discharge Disposition: HOME SELF-CARE
== END 2017-04-15 16:56 | disposition home or self-care (01) | DRG 181 ==
LOC: EC 15:33 → 6SEL 16:17
PROVIDERS: ADMIT Internal Medicine; ATTEND Internal Medicine
PROC: 0BD78ZX Extraction of Left Main Bronchus, Via Natural or Artificial Opening Endoscopic, Diagnostic (ICD-10-PCS; principal; 2017-04-14 07:30)
DX: C34.02 Malignant neoplasm of left main bronchus (principal); J90 Pleural effusion, not elsewhere classified; I48.1 Persistent atrial fibrillation; I48.2 Chronic atrial fibrillation; J44.9 Chronic obstructive pulmonary disease, unspecified; J98.19 Other pulmonary collapse; I10 Essential (primary) hypertension; E78.5 Hyperlipidemia, unspecified; I25.10 Atherosclerotic heart disease of native coronary artery without angina pectoris; Z85.038 Personal history of other malignant neoplasm of large intestine; Z90.49 Acquired absence of other specified parts of digestive tract; Z79.01 Long term (current) use of anticoagulants; Z79.899 Other long term (current) drug therapy; Z87.11 Personal history of peptic ulcer disease; Z87.891 Personal history of nicotine dependence; Z87.19 Personal history of other diseases of the digestive system; Z81.8 Family history of other mental and behavioral disorders
CPT/HCPCS: 31623; 31624; 31625; 70460; 71010; 71020; 80048; 82272; 82550; 82553; 83605; 84484; 85025; 85610; 85730; 87040; 87070; 87086; 87205; 88104; 88108; 88305; 88341; 88342; 93005; 93306; 94640; 94760; 96365; 99291

== ENCOUNTER → 2017-04-19 | Outpatient (CLI) | payer MEDICARE ==
--- NOTE | 2017-04-20 14:32 | PE ---
Nuclear medicine PET/CT HISTORY: Lung carcinoma initial Patient received 11.8 mCi F-18 FDG intravenously in delayed scanning performed from skull base to the mid thighs. Localization and attenuation correction CT scan was performed. Correlation to chest CT 04/12/2017 Neck and chest: There is no aerated lung within the left hemithorax. Left mainstem bronchus is trunca marycruz, abnormal soft tissue extends from the right hilar region towards the subcarinal location, precar inal adenopathy, retrocaval pretracheal, right paratracheal adenopathy is present, SUV is 15.3. Abnor mal hypermetabolic uptake corresponds to a large area involving the left upper lobe and left lower lo be, SUV is 14-15. Right supraclavicular adenopathy is present, there is associated hypermetabolic upt neida, SUV is 15.9. Small soft tissue nodule present in the right upper lobe measures 12 mm, associated hypermetabolic uptake, SUV is 3.5. Small pericardial effusion, soft tissue density present anterior to the right ventricle. No associated hypermetabolic uptake however. The aortic root is enlarged bao roximately 5 cm. There are coronary artery calcifications. Right maxillary sinus disease noted, there may be a mucus retention cyst There is no adrenal mass. No retroperitoneal adenopathy. Hiatal hernia is present. Surgical clips pre sent and there is a partial intrathoracic stomach. Bones are within normal limits. Prostate is enlarged and shows associated calcifications. Focus of hy permetabolic uptake is noted within the prostate gland posteriorly at the level of some calcification s. IMPRESSION: Findings compatible with lung carcinoma. Hypermetabolic uptake noted in the prostate. Aor tic aneurysm. Possible recurrent hiatal hernia.
== END | disposition home or self-care (01) ==
LOC: RADPETMAIN 12:52
PROVIDERS: ATTEND Internal Medicine Hematology & Oncology
DX: I71.9 Aortic aneurysm of unspecified site, without rupture (principal); C34.82 Malignant neoplasm of overlapping sites of left bronchus and lung
CPT/HCPCS: 78815; A9552